=== PATIENT | female | born 1965 | race Caucasian/White ===

== ENCOUNTER → 2023-12-18 09:01 | Outpatient (REF) | payer OTHER, SELFPAY | LOC: HWRAD 09:01 | PROVIDERS: ATTENDING PHYSICIAN Surgery; FAMILY PHYSICIAN Nurse Practitioner Family | DX: R19.09 Other intra-abdominal and pelvic swelling, mass and lump (principal); R10.31 Right lower quadrant pain | CPT/HCPCS: 72192 ==

== ENCOUNTER → 2024-01-28 07:47 | Outpatient (REF) | payer OTHER, SELFPAY | LOC: RAD 07:47 | PROVIDERS: ATTENDING PHYSICIAN Nurse Practitioner Family | DX: R10.31 Right lower quadrant pain (principal); M54.31 Sciatica, right side | CPT/HCPCS: 74177; Q9967 ==

== ENCOUNTER → 2024-02-17 10:13 | Outpatient (REF) | payer OTHER, SELFPAY | LOC: WDC 10:13 | PROVIDERS: ATTENDING PHYSICIAN Obstetrics & Gynecology; FAMILY PHYSICIAN Nurse Practitioner Family | DX: N63.20 Unspecified lump in the left breast, unspecified quadrant (principal); N64.59 Other signs and symptoms in breast | CPT/HCPCS: 76642; 77061; 77065 ==

== ENCOUNTER → 2024-03-10 10:01 | Outpatient (REF) | payer OTHER, SELFPAY | LOC: HWRAD 10:01 | PROVIDERS: ATTENDING PHYSICIAN Nurse Practitioner Family; REFERRING PHYSICIAN Obstetrics & Gynecology | DX: N83.209 Unspecified ovarian cyst, unspecified side (principal) | CPT/HCPCS: 76830; 76856 ==

== ENCOUNTER 2024-09-19 12:20 | Emergency (ER) | payer OTHER, SELFPAY ==
[2024-09-19 12:21] VITALS: BP 141/98
[2024-09-19 12:41] VITALS: BMI 31.1
[2024-09-19 12:54] VITALS: BP 123/74
[2024-09-19 13:00] VITALS: BP 118/75
[2024-09-19 13:05] LABS: % Basophils 0.8 % (0-2); % Eosinophils 4.2 % (0-6); % Immature Granulocytes 0.4 % (0-0.5); % Lymphocytes 29.9 % (20.5-51.1); % Neutrophils 58.7 % (42.2-75.2); Absolute Basophils 0.1 10^3/uL (0-0.2); Absolute Eosinophils 0.3 10^3/uL (0-0.7); Absolute Lymphocytes 2.2 10^3/uL (1.2-3.4); Absolute Monocytes 0.4 10^3/uL (0.1-0.6); Absolute Neutrophils 4.2 10^3/uL (1.4-6.5); Hematocrit 40.5 % (37.0-47.0); Hemoglobin 13.4 g/dL (12.0-16.0); Mean Corp Hgb Conc. 33.1 g/dL (33.0-37.0); Mean Corpuscular Hgb 28.6 pg (27.0-31.0); Mean Corpuscular Volume 86.4 fL (81.0-99.0); Mean Platelet Volume 9.8 fL (7.4-10.4); Nucleated Red Blood Cells % 0 %; Platelet Count 302 10^3/uL (130-400); Red Blood Cell Count 4.69 10^6/uL (4.20-5.40); Red Cell Dist. Width 13.3 % (11.5-14.5); White Blood Cell Count 7.2 10^3/uL (4.8-10.8)
--- NOTE | 2024-09-19 13:08 | ED.GENMED ---
History of Present Illness
<BEE Norris Last Filed: 09/19/24 17:32>
General
Chief Complaint: Dizziness
Source: patient
Exam Limitations: none
Time Seen by Provider: 09/19/24 13:03
Nursing documentation reviewed up to this point in time: agreed with
History of Present Illness
History of Present Illness:
64-year-old female with a past medical history of migraines presents to the emergency department today with concerns of intermittent dizziness and had neck pain for the past week. Patient reports that she does get migraines and takes Emg[employer]
injections for this but this does feel different. She has no fevers or chills associated with this, no diplopia, no dysarthria, no dysphagia. She states that her symptoms become worse when she is laying on her right side. Patient reports that
when she turns her head to the right side and looks to the right she gets a sudden surge of 'wooziness' and dizziness and feels her neck pain intensify. The neck pain is felt on the right side. Patient denies recent injury to her head or neck,
denies any recent chiropractic manipulation. Patient is concerned that her current symptoms are related to high calcium---of note, patient was noted to have kidney stones noted on abdominal CT and was referred to see urology here, and he did
testing which revealed potential hyperparathyroidism.
Past History
<BEE Norris Last Filed: 09/19/24 17:32>
Past History
ED Past Medical History: Other (Migraine headaches)
ED Past Surgical History: None
Social History
Personal:
Living: with family
Review of Systems
<BEE Norris Last Filed: 09/19/24 17:32>
Review of Systems
All Other Systems: ROS reviewed and negative except as documented in HPI and ROS
Phy Exam
<Karine Li PA-C - Last Filed: 09/19/24 17:32>
Physical Exam
Physical Exam:
General: Patient is well appearing and in no acute distress; non-toxic
Skin: Warm and dry, no rashes or lesions
Head: Normocephalic, atraumatic
Eyes: Sclera non-icteric. EOMs intact. No nystagmus.
Cardiac: Regular rate and rhythm, no murmurs
Peripheral Vascular: No lower extremity swelling or edema
Pulm: Normal respiratory effort, no wheezes, rales, rhonchi
Neuro: CN II-XII intact, no focal neurologic deficits. No dysmetria.
Psychiatric: Appropriate mood and affect.
Course
<Karine Li PA-C - Last Filed: 09/19/24 17:32>
Orders/Labs/Results
Orders:
Orders
09/19/24 12:50
CBC/With Diff [Complete Blood Count/With Diff] Urgent
Comprehensive Metabolic Panel Urgent
09/19/24 13:25
CT Head & Neck Angio W/wo IV Urgent
Reason For Exam: posterior right sided neck pain, dizziness, headac
09/19/24 13:27
IV Insert/Care/Rem.- Treatment PRN
0.9% Sodium Chloride 500 ml [Nss] 500 ml IV BOLUS
Diphenhydramine [Benadryl] 12.5 mg IV NOW STA
Metoclopramide [Reglan] 10 mg IV NOW STA
09/19/24 14:59
Electrocardiogram (*1) Urgent
Reason for Study: Shortness of Breath
EKG- Treatment ONCE
Acetaminophen 1000MG/100Ml [Ofirmev] 1,000 mg in 100 ml IV ONCE
Acetaminophen IV Indication:: ED Narcotic Naive Pt-ONCE
Ketorolac [Toradol] 15 mg IV NOW STA
CR Chest - 2 Views Urgent
Comment:
Reason For Exam: sob
09/19/24 16:31
Ionized Calcium Urgent
Abnormal Lab Results
09/19/24 09/19/24
12:50 16:31
BUN 30 H mg/dl
(7-17)
Glucose 107 H mg/dl
(70-99)
Calcium 11.8 H mg/dl
(8.4-10.2)
Ionized Calcium 1.46 H mMOL/L
(1.15-1.33)
09/19/24 12:50
09/19/24 12:50
Vital Signs
Initial and Last Documented VS:
Initial Vital Signs
Temp Pulse Resp BP Pulse Ox
36.8 C 109 18 141/98 100
09/19/24 12:21 09/19/24 12:21 09/19/24 12:21 09/19/24 12:21 09/19/24 12:21
Last Documented Vital Signs
Temp Pulse Resp BP Pulse Ox
36.5 C 68 18 125/90 98
09/19/24 15:09 09/19/24 15:09 09/19/24 15:09 09/19/24 15:09 09/19/24 15:09
<Collin Bailon MD - Last Filed: 09/19/24 18:21>
Orders/Labs/Results
Orders:
Orders
09/19/24 12:50
CBC/With Diff [Complete Blood Count/With Diff] Urgent
Comprehensive Metabolic Panel Urgent
09/19/24 13:25
CT Head & Neck Angio W/wo IV Urgent
Reason For Exam: posterior right sided neck pain, dizziness, headac
09/19/24 13:27
IV Insert/Care/Rem.- Treatment PRN
0.9% Sodium Chloride 500 ml [Nss] 500 ml IV BOLUS
Diphenhydramine [Benadryl] 12.5 mg IV NOW STA
Metoclopramide [Reglan] 10 mg IV NOW STA
09/19/24 14:59
Electrocardiogram (*1) Urgent
Reason for Study: Shortness of Breath
EKG- Treatment ONCE
Acetaminophen 1000MG/100Ml [Ofirmev] 1,000 mg in 100 ml IV ONCE
Acetaminophen IV Indication:: ED Narcotic Naive Pt-ONCE
Ketorolac [Toradol] 15 mg IV NOW STA
CR Chest - 2 Views Urgent
Comment:
Reason For Exam: sob
09/19/24 16:31
Ionized Calcium Urgent
Abnormal Lab Results
09/19/24 09/19/24
12:50 16:31
BUN 30 H mg/dl
(7-17)
Glucose 107 H mg/dl
(70-99)
Calcium 11.8 H mg/dl
(8.4-10.2)
Ionized Calcium 1.46 H mMOL/L
(1.15-1.33)
09/19/24 12:50
09/19/24 12:50
Vital Signs
Initial and Last Documented VS:
Initial Vital Signs
Temp Pulse Resp BP Pulse Ox
36.8 C 109 18 141/98 100
09/19/24 12:21 09/19/24 12:21 09/19/24 12:21 09/19/24 12:21 09/19/24 12:21
Last Documented Vital Signs
Temp Pulse Resp BP Pulse Ox
36.5 C 68 18 125/90 98
09/19/24 15:09 09/19/24 15:09 09/19/24 15:09 09/19/24 15:09 09/19/24 15:09
Jose Alt;Karine Li PA-C - Last Filed: 09/19/24 17:32>
MDM/Problems Addressed
Differential Diagnosis Includes:
see below
MDM/Problems Addressed:
NUMBER AND COMPLEXITY OF PROBLEMS ADDRESSED AT THE ENCOUNTER
� Chronic conditions affecting care: htn, migraines
� Acute Exacerbation and/or Progression of Chronic Illness:
� Differential Diagnosis includes: Vertebral artery dissection, cerebellar stroke, complex migraine, musculoskeletal sprain/strain, cervalgia, hypercalcemia
AMOUNT AND/OR COMPLEXITY OF DATA TO BE REVIEWED AND ANALYZED
� I performed an independent evaluation of and my interpretation is:
CT:
Laboratory Studies: calcium 11.8 (this is being worked up)
Other:
� Review of other/old records: Reviewed ER physician documentation from 05/04/2020, patient seen for infection of her thumb
� Clinical information was obtained by an independent historian:
� Prescriptions/Medications Considered but not given: none
� Further testing considered but not performed:
RISK OF COMPLICATIONS AND/OR MORBIDITY OR MORTALITY OF PATIENT MANAGEMENT
� Social determinants of health affecting care: n/a
� Discussion with other providers: ER attending
� Escalation of care including admission/observation vs risk of discharge considered:
59-year-old female presents emergency department with intermittent dizziness and headaches with right sided neck pain. Her symptoms are brought on when she lays on her right side and turns her head to her right. Her neurologic exam is
unremarkable. She has had no recent head or neck injury. Will send for CTA of the head and neck. CT of the head and neck was negative for dissection, cervical spine does show significant degenerative disc disease which may be responsible for
patient's symptoms. Patient also may be related to hypercalcemia however this can be followed on outpatient basis. Patient stable for discharge.
<Karine Li PA-C - Last Filed: 09/19/24 17:32>
*Critical Care Note
Total Time (30-74mins, 75-104mins- exclusive of procedures): Not Applicable
ED Attending Note
<Karine Li PA-C - Last Filed: 09/19/24 17:32>
-
Portions of this chart may have been created with voice recognition software.� Occasional wrong word or��sound alike� substitutions may have occurred due to the inherent limitations of voice recognition software.
<Collin Bailon MD - Last Filed: 09/19/24 18:21>
ED Attending Note
Patient seen and examined by attending physician: Yes
ED Attending Note:
I have seen and evaluated the patient with a [id number] encounter. I have spoken to the advance practicer provider and involved in the medical history, the physical exam, medical decision making.
Evaluation and management service: agree unless noted differently below.
Results interpretation: agree unless noted differently below.
Focused HPI: 59-year-old female with a past medical history as noted presents to the ER for evaluation of headache and dizziness. Patient reports symptoms have been ongoing for the past 2 weeks. She reports that she has had some generalized
fatigue, occipital headache. She says she has some mild dizziness especially when she lays down at nighttime. She also reports she has had some mild shortness of breath. She denies any chest pain or palpitations. She denies any swelling in the
legs. She denies any focal weakness or numbness in her extremities, change in her vision or speech or any other complaints on review of systems. She does note that she has been dealing with some hypercalcemia and is being evaluated and worked up
outpatient.
Physical exam: Awake and alert in no distress. Hypertension and tachycardia noted in triage but normalized by my assessment. She has no signs of trauma to the head. No tenderness in the cervical spine. Cranial nerves intact 2 through 12, speech
fluid without dysarthria or aphasia. Motor and sensory intact in all extremities. Pupils are equal round and reactive to light bilaterally, extraocular movements intact without nystagmus. She has no cardiac rubs gallops or murmurs and her lungs
are clear to auscultation bilaterally. She has no edema.
Medical Decision Makin-year-old female presents for evaluation of headache and dizziness also says she has had some mild shortness of breath recently. Labs were sent off including a CBC and CMP�CMP shows some mild hyperkalemia which is known
but otherwise unremarkable. She was sent for a CTA head and neck which showed no dissection, no aneurysm, no other acute pathology. Chest x-ray reviewed by me shows no acute disease. EKG shows sinus rhythm. No clear emergent pathology, possible
patient is having mild viral syndrome or some mild symptoms from hypercalcemia�she has follow-up plan for treatment as an outpatient. Spoke with patient she feels comfortable with discharge and outpatient follow-up. All questions answered.
Discharge Plan
Departure
Patient Disposition: Home (Routine Discharge)
Date of Disposition: 09/19/24
Time of Disposition: 16:22
Patient with high blood pressure during this ER visit?: Yes
Condition: Good
Discharge Problem:
Neck pain, Dizziness
Instructions: Headaches in adults, Dizziness, BLOOD PRESSURE
Prescriptions:
No Action
sumatriptan succinate [Imitrex] 100 MG tablet
100 mg PO PRN (Reason: migraines)
fexofenadine [Abbie] 180 MG tablet
180 mg PO DAILY
amitriptyline 25 MG tablet
25 mg PO DAILY
mefenamic acid [Ponstel] 250 MG capsule
250 mg PO PRN (Reason: cramps)
hydrochlorothiazide 12.5 MG capsule
12.5 mg PO DAILY
lisinopril 5 MG tablet
5 mg PO DAILY
eszopiclone [Lunesta] 3 MG tablet
3 mg PO PRN (Reason: insomnia)
acetaminophen-codeine 1 TABLET tablet
1 tab PO Q4HPRN PRN (Reason: pain) Qty: 10 0RF
sulfamethoxazole-trimethoprim 1 TABLET tablet
1 tab PO BID Qty: 20 0RF
Referrals:
Tena Huerta CRNP [Family Provider] -
Activity Restrictions/Additional Instructions:
Please follow up with your urologist and primary care provider regarding your calcium levels.
PLEASE RETURN TO EMERGENCY DEPARTMENT SHOULD YOU DEVELOP INTRACTABLE NAUSEA OR VOMITING, FEVERS OR CHILLS, CHEST PAIN, SHORTNESS OF BREATH, CHANGE IN MENTAL STATUS, ABDOMINAL PAIN, OR ANY OTHER SIGNS OR SYMPTOMS CONCERNING TO YOU.
Interventions
Interventions:
*Risk Screen - Suicide Last Done: 09/19/24 12:21
*General Assessment Last Done: 09/19/24 12:21
*Neglect/Abuse Screening Last Done: 09/19/24 13:02
ED- Fall Risk Assessment Last Done: 09/19/24 12:41
*ED COVID-19 Vaccine History Last Done: 09/19/24 12:21
*Nursing Disposition Last Done: 09/19/24 16:40
ED- Neurological Assessment Last Done: 09/19/24 13:02
ED- Cardiac Assessment Last Done: 09/19/24 13:02
ED Swallowing Screen Last Done: 09/19/24 13:05
Discharge Date and Time
Discharge Date/Time: 09/19/24 16:41
Print Language: NICARAGUAN
[2024-09-19 13:17] LABS: ALT (SGPT) 22 U/L (0-35); AST (SGOT) 26 U/L (14-36); Albumin 4.7 g/dl (3.5-5.0); Alkaline Phosphatase 70 U/L (38-126); Blood Urea Nitrogen 30 mg/dl (7-17); Calcium 11.8 mg/dl (8.4-10.2); Carbon Dioxide 23 mmol/L (22-30); Chloride 102 mmol/L (98-107); Estimated Creatinine Clearance 69 ml/min; Glucose 107 mg/dl (70-99); Potassium 4.2 mmol/L (3.5-5.1); Sodium 137 mmol/L (135-145); Total Bilirubin 0.3 mg/dl (0.2-1.3); eGFR > 60.00
[2024-09-19] MEDS: NSS 500 IV (13:45)
[2024-09-19] MEDS: BENADRYL 12.5 MG IV (13:46)
[2024-09-19] MEDS: REGLAN 10 MG IV (13:47)
[2024-09-19 14:00] VITALS: BP 108/84
[2024-09-19 15:09] VITALS: BP 125/90
[2024-09-19] MEDS: TORADOL 15 MG IV (16:01)
[2024-09-19] MEDS: OFIRMEV 100 IV (16:04)
[2024-09-19 16:42] LABS: Ionized Calcium 1.46 mMOL/L (1.15-1.33)
== END 2024-09-19 16:41 | disposition home or self-care (01) ==
LOC: EMR 12:20
PROVIDERS: EMERGENCY PHYSICIAN Emergency Medicine; FAMILY PHYSICIAN Nurse Practitioner Family
DX: M54.2 Cervicalgia (principal); R42 Dizziness and giddiness; R51.9 Headache, unspecified; R06.02 Shortness of breath; R53.83 Other fatigue; E83.52 Hypercalcemia; I10 Essential (primary) hypertension; K58.9 Irritable bowel syndrome, unspecified
CPT/HCPCS: 99285; 96361; 96374; 96375 ×3; 70496; 70498; 71046; 80053; 82330; 85025; 93005; Q9967

== ENCOUNTER 2024-09-22 17:18 | Emergency (ER) | payer OTHER, SELFPAY ==
[2024-09-22 17:25] VITALS: BP 140/93
[2024-09-22 17:56] LABS: % Basophils 0.7 % (0-2); % Eosinophils 2.9 % (0-6); % Immature Granulocytes 0.3 % (0-0.5); % Lymphocytes 29.2 % (20.5-51.1); % Monocytes 5.5 % (1.7-9.3); % Neutrophils 61.4 % (42.2-75.2); Absolute Basophils 0.1 10^3/uL (0-0.2); Absolute Eosinophils 0.2 10^3/uL (0-0.7); Absolute Monocytes 0.4 10^3/uL (0.1-0.6); Absolute Neutrophils 4.2 10^3/uL (1.4-6.5); Hematocrit 40.3 % (37.0-47.0); Hemoglobin 13.1 g/dL (12.0-16.0); Mean Corp Hgb Conc. 32.5 g/dL (33.0-37.0); Mean Corpuscular Hgb 28.7 pg (27.0-31.0); Mean Corpuscular Volume 88.4 fL (81.0-99.0); Mean Platelet Volume 9.8 fL (7.4-10.4); Nucleated Red Blood Cells % 0 %; Platelet Count 321 10^3/uL (130-400); Red Blood Cell Count 4.56 10^6/uL (4.20-5.40); Red Cell Dist. Width 13.6 % (11.5-14.5); White Blood Cell Count 6.9 10^3/uL (4.8-10.8)
[2024-09-22 18:12] LABS: ALT (SGPT) 22 U/L (0-35); AST (SGOT) 26 U/L (14-36); Albumin 4.8 g/dl (3.5-5.0); Alkaline Phosphatase 68 U/L (38-126); Blood Urea Nitrogen 26 mg/dl (7-17); Calcium 11.5 mg/dl (8.4-10.2); Carbon Dioxide 23 mmol/L (22-30); Chloride 100 mmol/L (98-107); Glucose 94 mg/dl (70-99); Potassium 4.2 mmol/L (3.5-5.1); Sodium 135 mmol/L (135-145); Total Bilirubin 0.3 mg/dl (0.2-1.3); Total Protein 7.2 g/dl (6.3-8.2); eGFR 57.52
[2024-09-22 18:20] LABS: Troponin I < 0.012 ng/ml
--- NOTE | 2024-09-22 18:32 | ED.GENMED ---
ED Provider Triage
-
Patient seen by provider in Triage?: Seen in Triage
Attestation: A medical screening examination has been initiated by a qualified medical provider. Based on the assessment performed at this time, it has been determined that an emergent medical condition may exist and the patient has been informed
that further medical evaluation and possible additional diagnostic testing may be needed.
HPI: 59yoF here with R sided headache and tingling. Seen in the ED 3 days ago for the same and had a CTA done. C/o slightly worsening symptoms. Patient very worried after seeing the radiology report of her CT.
GENERAL: Alert , in no apparent distress
EYE: No visual abnormalities.
NECK: Trachea midline
ENT: No visible abnormalities.
LUNGS: No acute respiratory distress
NEUROLOGICAL: Alert and oriented
SKIN: Skin intact. No visible changes.
MUSCULOSKELETAL: Moving extremities normally
PSYCH: Normal and appropriate interaction.
This is a medical evaluation conducted in person to initiate diagnostic evaluation and provide initial therapeutics. Please see further documentation by the treating clinician.
Cardiac labs, TSH, EKG ordered. Will defer repeat imaging in triage.
History of Present Illness
General
Chief Complaint: Dizziness
History of Present Illness
History of Present Illness:
See triage note. Patient left after triage assessment.
Past History
Past History
ED Past Medical History: Other (Migraine headaches)
ED Past Surgical History: None
Social History
Personal:
Living: with family
Phy Exam
Physical Exam
Physical Exam:
N/a
Course
Orders/Labs/Results
Orders:
Orders
09/22/24 17:40
Electrocardiogram (*1) Urgent
Reason for Study: Other
Other Reason for Exam: tingling
EKG- Treatment ONCE
09/22/24 17:46
Complete Blood Count/With Diff Urgent
Comprehensive Metabolic Panel Urgent
Magnesium Urgent
TSH Reflex To Free T4 Urgent
Troponin I Urgent
Abnormal Lab Results
09/22/24
17:46
MCHC 32.5 L g/dL
(33.0-37.0)
BUN 26 H mg/dl
(7-17)
Creatinine 1.1 H mg/dL
(0.6-1.0)
Calcium 11.5 H mg/dl
(8.4-10.2)
09/22/24 17:46
09/22/24 17:46
Vital Signs
Initial and Last Documented VS:
Initial Vital Signs
Temp Pulse Resp BP Pulse Ox
98.0 F 106 18 140/93 98
09/22/24 17:25 09/22/24 17:25 09/22/24 17:25 09/22/24 17:25 09/22/24 17:25
Last Documented Vital Signs
Temp Pulse Resp BP Pulse Ox
98.0 F 106 18 140/93 98
09/22/24 17:25 09/22/24 17:25 09/22/24 17:25 09/22/24 17:25 09/22/24 17:25
*Critical Care Note
Total Time (30-74mins, 75-104mins- exclusive of procedures): Not Applicable
ED Attending Note
-
Portions of this chart may have been created with voice recognition software.� Occasional wrong word or��sound alike� substitutions may have occurred due to the inherent limitations of voice recognition software.
Discharge Plan
Departure
Prescriptions:
No Action
sumatriptan succinate [Imitrex] 100 MG tablet
100 mg PO PRN (Reason: migraines)
fexofenadine [Abbie] 180 MG tablet
180 mg PO DAILY
amitriptyline 25 MG tablet
25 mg PO DAILY
mefenamic acid [Ponstel] 250 MG capsule
250 mg PO PRN (Reason: cramps)
hydrochlorothiazide 12.5 MG capsule
12.5 mg PO DAILY
lisinopril 5 MG tablet
5 mg PO DAILY
eszopiclone [Lunesta] 3 MG tablet
3 mg PO PRN (Reason: insomnia)
acetaminophen-codeine 1 TABLET tablet
1 tab PO Q4HPRN PRN (Reason: pain) Qty: 10 0RF
sulfamethoxazole-trimethoprim 1 TABLET tablet
1 tab PO BID Qty: 20 0RF
Interventions
Interventions:
*Risk Screen - Suicide Last Done: 09/22/24 17:28
*General Assessment Last Done: 09/22/24 17:28
*Neglect/Abuse Screening Last Done: 09/22/24 17:28
*ED COVID-19 Vaccine History Last Done: 09/22/24 17:28
*Nursing Disposition Last Done: 09/22/24 18:46
Discharge Date and Time
Print Language: PARAGUAYAN
[2024-09-22 18:38] LABS: TSH Reflex To Free T4 0.91 uIU/ml (0.47-4.68)
== END 2024-09-22 18:46 ==
LOC: EMR 17:18
PROVIDERS: EMERGENCY PHYSICIAN Physician Assistant
DX: R42 Dizziness and giddiness (principal); R51.9 Headache, unspecified; Z53.21 Procedure and treatment not carried out due to patient leaving prior to being seen by health care provider
CPT/HCPCS: 99281; 80053; 83735; 84443; 84484; 85025; 93005

== ENCOUNTER → 2024-10-06 13:55 | Outpatient (REF) | payer OTHER, SELFPAY | LOC: RAD 13:55 | PROVIDERS: ATTENDING PHYSICIAN Nurse Practitioner; FAMILY PHYSICIAN Surgery Vascular Surgery; REFERRING PHYSICIAN Internal Medicine Endocrinology, Diabetes & Metabolism | DX: I77.9 Disorder of arteries and arterioles, unspecified (principal); R06.02 Shortness of breath | CPT/HCPCS: 93880 ==

== ENCOUNTER → 2024-10-07 16:03 | Outpatient (REF) | payer OTHER, SELFPAY | LOC: WDC 16:03 | PROVIDERS: ATTENDING PHYSICIAN Obstetrics & Gynecology; FAMILY PHYSICIAN Nurse Practitioner Family | DX: Z12.31 Encounter for screening mammogram for malignant neoplasm of breast (principal) | CPT/HCPCS: 77063; 77067 ==

== ENCOUNTER → 2024-10-29 12:28 | Outpatient (REF) | payer OTHER, SELFPAY | LOC: PAVMRI 12:28 | PROVIDERS: ATTENDING PHYSICIAN Nurse Practitioner; FAMILY PHYSICIAN Nurse Practitioner Family | DX: G95.20 Unspecified cord compression (principal); M54.81 Occipital neuralgia | CPT/HCPCS: 70553; 72141 ==

== ENCOUNTER → 2025-01-05 08:53 | Outpatient (REF) | payer OTHER, SELFPAY | LOC: RAD 08:53 | PROVIDERS: ATTENDING PHYSICIAN Internal Medicine Endocrinology, Diabetes & Metabolism; FAMILY PHYSICIAN Nurse Practitioner Family | DX: E21.0 Primary hyperparathyroidism (principal) | CPT/HCPCS: 78071; A9500 ==

== ENCOUNTER → 2025-01-22 08:35 | Outpatient (REF) | payer OTHER, SELFPAY | LOC: RAD 08:35 | PROVIDERS: ATTENDING PHYSICIAN Internal Medicine Endocrinology, Diabetes & Metabolism; FAMILY PHYSICIAN Nurse Practitioner Family | DX: E21.0 Primary hyperparathyroidism (principal); Z13.820 Encounter for screening for osteoporosis | CPT/HCPCS: 77080; 77081 ==

== ENCOUNTER → 2025-02-25 08:54 | Outpatient (REF) | payer OTHER, SELFPAY | LOC: RAD 08:54 | PROVIDERS: ATTENDING PHYSICIAN Obstetrics & Gynecology; FAMILY PHYSICIAN Nurse Practitioner Family | DX: N83.202 Unspecified ovarian cyst, left side (principal) | CPT/HCPCS: 76830; 76856 ==

== ENCOUNTER → 2025-03-12 18:40 | Outpatient (REF) | payer OTHER, SELFPAY | LOC: MRI 3T 18:40 | PROVIDERS: ATTENDING PHYSICIAN Obstetrics & Gynecology; FAMILY PHYSICIAN Nurse Practitioner Family | DX: N83.299 Other ovarian cyst, unspecified side (principal) | CPT/HCPCS: 72197; A9575 ==

== ENCOUNTER 2025-05-11 08:44 | Day surgery (SDC) | payer OTHER, SELFPAY ==
[2025-05-07 09:10] LABS: Hematocrit 39.4 % (37.0-47.0); Hemoglobin 12.9 g/dL (12.0-16.0); Mean Corp Hgb Conc. 32.7 g/dL (33.0-37.0); Mean Corpuscular Volume 87.2 fL (81.0-99.0); Platelet Count 322 10^3/uL (130-400); Red Cell Dist. Width 13.4 % (11.5-14.5)
[2025-05-07 09:20] LABS: INR 0.99; PT 13.4 Sec (11.4-14.6)
[2025-05-07 09:21] LABS: APTT 24.6 Sec (23.4-35.0)
[2025-05-07 09:56] LABS: ALT (SGPT) 22 U/L (0-35); AST (SGOT) 21 U/L (14-36); Albumin 4.9 g/dl (3.5-5.0); Alkaline Phosphatase 72 U/L (38-126); Blood Urea Nitrogen 18 mg/dl (7-17); Calcium 12.1 mg/dl (8.4-10.2); Carbon Dioxide 25 mmol/L (22-30); Chloride 106 mmol/L (98-107); Glucose 97 mg/dl (70-99); Potassium 4.5 mmol/L (3.5-5.1); Sodium 140 mmol/L (135-145); Total Protein 7.4 g/dl (6.3-8.2); eGFR > 60.00
[2025-05-07 14:09] VITALS: BMI 32.0
[2025-05-11] VITALS (11 sets, daily range): BP systolic 105–118; BP diastolic 73–82; BMI 32.0
[2025-05-11] MEDS: NEURONTIN 300 MG PO (09:29)
[2025-05-11] MEDS: TYLENOL 1000 MG PO (09:29)
[2025-05-11] MEDS: HEPARIN 5000 UNITS SC (09:30)
[2025-05-11 10:57] LABS: Turbo PTH 198.5 pg/ml (13.6-85.8)
--- NOTE | 2025-05-11 11:17 | OR.RPT ---
Operative Report
Operative Report
Date of Operation: May 11, 2025
Preoperative Diagnosis: Hyperparathyroidism - E210
Postoperative Diagnosis: Same
Surgeon: Aniceto Arriola M.D.
Operation: Minimally Invasive Right Inferior Parathyroidectomy - 50705
Anesthesia: GET
Estimated Blood Loss: 3 cc
Drains: None
Specimen: Right Inferior neck nodule, rule out parathyroid adenoma
Complications: None
Procedure:
The patient was taken to the operating room and placed in the usual supine position. After adequate general endotracheal anesthesia was established, the patient's neck was extended, prepped, and draped in the typical sterile fashion. A 4 cm
transcervical incision was made two fingerbreadths above the sternal notch. The skin incision was made with the #15 blade, and this was taken through the skin into the subcutaneous tissue. The underlying platysma muscle was divided, and subplatysmal
flaps were created superiorly to the thyroid cartilage and inferiorly to the sternal notch. Strap muscles were identified and at the midline.
Attention was turned to the patient's right side of the neck. The right thyroid lobe was mobilized medially. During this process, the right recurrent laryngeal nerve was identified and preserved throughout the surgery. The right lower neck nodule
was identified and noted to be enlarged, excised, and sent to the pathology department, which showed a hypercellular parathyroid gland. The normal-appearing right upper parathyroid gland was identified and preserved. The intraoperative PTH levels
normalized.
After obtaining adequate hemostasis, the strap muscles were reapproximated with #3-0 Vicryl in a running fashion. The platysma muscle was reapproximated with #3-0 Vicryl in an interrupted fashion, and the skin was approximated with #4-0 Monocryl in
a running subcuticular fashion. The Steri-Strips and sterile dressings were placed. The patient tolerated the procedure well. The final instrument, needle, and sponge counts were correct. The patient was extubated and transferred to the PACU.
[2025-05-11 11:35] LABS: Turbo PTH 35.0 pg/ml (13.6-85.8)
[2025-05-11] MEDS: DILAUDID 0.25 MG IV ×3 (12:10→12:37)
== END 2025-05-11 14:20 | disposition home or self-care (01) ==
LOC: SDS 08:44
PROVIDERS: ATTENDING PHYSICIAN Surgery; FAMILY PHYSICIAN Nurse Practitioner Family
DX: D35.1 Benign neoplasm of parathyroid gland (principal); E21.3 Hyperparathyroidism, unspecified
CPT/HCPCS: 60500; 36415; 80053; 83970; 85027; 85610; 85730; 88305; 88331

== ENCOUNTER → 2025-07-18 13:32 | Outpatient (REF) | payer OTHER, SELFPAY | LOC: PAVMRI 13:32 | PROVIDERS: ATTENDING PHYSICIAN Nurse Practitioner Family | DX: M25.512 Pain in left shoulder (principal) | CPT/HCPCS: 73221 ==